=== PATIENT | male | born 1995 | race Asian ===

== ENCOUNTER 2018-11-16 17:15 | Emergency (ER) | payer OTHER ==
[~2018-11-16] VITALS: Ht 170.2 cm; Wt 84.1 kg
[2018-11-16] MEDS ORDERED: ADACEL/BOOSTRIX VACCINE (DIPHTH/PERTUSS/ACELL/TETANUS)0.5ML SYR (90715) IM ONE (17:30)
[2018-11-16] MEDS ORDERED: DERMABOND TOPICAL SKIN ADHESIVE TOP ONE (17:45)
[2018-11-16 18:28] VITALS: BP 122/62
== END 2018-11-16 18:35 | disposition home or self-care (01) ==
LOC: M ED 17:15
DX: S61.215A Laceration without foreign body of left ring finger without damage to nail, initial encounter (principal); W26.8XXA Contact with other sharp object(s), not elsewhere classified, initial encounter; Y92.89 Other specified places as the place of occurrence of the external cause; Y93.9 Activity, unspecified; Y99.1 Military activity; Z72.0 Tobacco use